=== PATIENT | female | born 1930 | race Caucasian/White ===

== ENCOUNTER 2016-08-06 06:54 | Emergency (ER) | payer MEDICARE, MEDICAID ==
[~2016-08-06] VITALS: Ht 167.6 cm; Wt 61.2 kg
[2016-08-06 07:05] VITALS: BP 155/74
[2016-08-06] MEDS ORDERED: OMEPRAZOLE40 M1 ORAL (07:27)
[2016-08-06] MEDS ORDERED: NAMENDA10 MG ORAL (07:27)
[2016-08-06] MEDS ORDERED: ASPIRIN81 MG ORAL (07:27)
[2016-08-06] MEDS ORDERED: IBUPROFEN600 MG ORAL (07:27)
[2016-08-06] MEDS ORDERED: ATENOLOL25 MG ORAL (07:27)
[2016-08-06] MEDS ORDERED: ATIVAN0.5 MG ORAL (07:27)
[2016-08-06] MEDS ORDERED: DONEPEZIL HCL5 M2 ORAL (07:27)
[2016-08-06 07:52] LABS: BASOPHILS % (AUTO) 0.4 % (0.0-2.0); EOSINOPHILS % (AUTO) 0.1 % (0.0-3.0); LYMPHOCYTES % (AUTO) 14.3 % (20.0-45.0); MEAN CORPUSCULAR HEMOGLOBIN 29.5 PG (27.0-31.0); MEAN CORPUSCULAR HGB CONC 33.1 G/DL (32.0-36.0); MEAN CORPUSCULAR VOLUME 89 FL (80-99); MEAN PLATELET VOLUME 6.7 FL (6.5-10.1); MONOCYTES % (AUTO) 5.8 % (1.0-10.0); NEUTROPHILS % (AUTO) 79.4 % (45.0-75.0); PLATELET COUNT 392 K/UL (150-450); RED BLOOD COUNT 4.45 M/UL (4.20-5.40); RED CELL DISTRIBUTION WIDTH 10.8 % (11.6-14.8)
[2016-08-06 08:04] LABS: PROTHROMBIN TIME 10.4 SEC (9.30-11.50); TROPONIN I < 0.30 ng/mL (<=0.30)
[2016-08-06 08:05] LABS: ALANINE AMINOTRANSFERASE 10 U/L (3-33); ALBUMIN/GLOBULIN RATIO 1.1 (1.0-2.7); ANION GAP 16 (5-15); ASPARTATE AMINO TRANSFERASE 16 U/L (5-40); CALCIUM 9.8 mg/dL (8.6-10.2); CARBON DIOXIDE 28 mEQ/L (20-30); CHLORIDE 94 mEQ/L (98-107); CREATININE 0.6 mg/dL (0.5-0.9); HEMOLYSIS 2; POTASSIUM 4.3 mEQ/L (3.4-4.9); SODIUM 138 mEQ/L (135-145); TOTAL PROTEIN 8.2 g/dL (6.6-8.7)
[2016-08-06 08:15] LABS: CKMB 2.6 ng/mL (< 3.8)
--- NOTE | 2016-08-06 08:43 | Diagnostic Imaging Report ---
Indication: Syncope Technique: Contiguous 5 mm thick transaxial imaging of the head obtained in a Siemens Sensation [address] scanner. Soft tissue and bone windows generated. Total Dose length Product (DLP): [address] Dose Index Volume (CTDIvol): 70.38 mGy Comparison: none Findings: There is moderate prominence of the ventricles, basal cisterns, and cerebral sulci consistent with atrophy. Mild, nonspecific, white matter hypoattenuation is noted throughout the brain consistent with chronic small vessel disease. There is no midline shift, edema, acute hemorrhage, mass effect, or abnormal extra-axial fluid collections. Bones and extra osseous soft tissues are unremarkable. There is mildly cold thickening within the sinus. Impression: No acute intracranial bleed, mass effect or edema. Moderate atrophy of the brain. Evidence of chronic small vessel disease involving white matter tracts. The CT scanner at [facility] is accredited by the [employer] and the scans are performed using protocols designed to limit radiation exposure to as low as reasonably achievable to attain images of sufficient resolution adequate for diagnostic evaluation.
--- NOTE | 2016-08-06 08:52 | Emergency Room Report ---
History of Present Illness General Chief Complaint: Multiple Trauma/Fall Source: Medical Record, EMS Present Illness HPI The patient was reported to be found down at the nursing facility Approximately 4:00 in the morning is when the incident that occurred Patient herself has severe dementia and is not able to speak with [place]ian translation Patient was found to have an abrasion over the nasal bridge and sent for further evaluation No reports of vomiting at the scene no reports of any focal weakness History of present illness is significantly limited given the patient's presentation Allergies: Coded Allergies: No Known Allergies (Unverified , 08/06/16) Patient History Limited by: medical condition Past Medical History: see triage record Pertinent Family History: none Reviewed Nursing Documentation: PMH: Agreed, PSxH: Agreed Nursing Documentation-PMH Hx Hypertension: Yes History Of Psychiatric Problem: Yes - Dementia Review of Systems All Other Systems: limited - Other than the ones mentioned in the history of present illness all others are reviewed however they do stay limited due to the patient's mental status Physical Exam Vital Signs Date Time Temp Pulse Resp B/P Pulse Ox O2 Delivery O2 Flow Rate FiO2 08/06/16 06:50 98.8 84 14 155/74 97 Room Air Sp02 EP Interpretation: reviewed, normal General Appearance: no apparent distress Head: normocephalic, atraumatic Eyes: bilateral eye EOMI, bilateral eye PERRL ENT: hearing grossly normal, normal pharynx, TMs + canals normal, uvula midline Neck: full range of motion, supple, no meningismus, no bony tend Respiratory: lungs clear, normal breath sounds, no rhonchi, no respiratory distress, no retraction, no accessory muscle use Cardiovascular #1: normal peripheral pulses, regular rate, rhythm, no edema, no gallop, no JVD, no murmur Gastrointestinal: normal bowel sounds, non tender, soft, no mass, no organomegaly, non-distended, no guarding, no hernia, no pulsatile mass, no rebound Genitourinary: no CVA tenderness Musculoskeletal: other - No obvious focal deficit however the patient does not follow commands makes exam somewhat difficult, Neurologic: responsive - To physical stimuli, sensory intact Psychiatric: mood/affect normal Skin: normal color, no rash, warm/dry, palpation normal Lymphatic: normal inspection, no adenopathy Medical Decision Making Diagnostic Impression: Primary Impression: Fall Additional Impression: Syncope ER Course The patient was found on the ground multiple differentials were considered Including but not limited to intracranial pathology, cardiac cardiopulmonary pathology Patient's EKG and blood work or at baseline levels Her white blood for count was minimally elevated however Imaging studies also at baseline levels CT head was also negative At this time given the extensive workup in the emergency room Patient is stable for initial conservative outpatient trial at the nursing facility CBC: White blood cell count 16,000 Chemistry normal UA negative Rhythm Strip Diag. Results EP Interpretation: yes Rate: 74 Rhythm: NSR, no PVC's, no ectopy Chest X-Ray Diagnostic Results EP Interpretation: Yes Findings: no consolidation, no effusion, no pneumothorax Number of Views: 1 Other X-Ray Diagnostic Results Other X-Ray Diagnostic Results : EP Interpretation: Yes Findings: no fractures, no dislocation, no soft tissue swelling Number of Views: 1 - pelvic CT/MRI/US Diagnostic Results CT/MRI/US Diagnostic Results : Impression CT head no acute disease Last Vital Signs Date Time Temp Pulse Resp B/P Pulse Ox O2 Delivery O2 Flow Rate FiO2 08/06/16 07:05 98.8 99 17 155/74 95 Room Air Status: improved Disposition: XFER SNF Condition: Stable Referrals: REYES ANGEL (PCP) Additional Instructions: Patient is provided with the discharge instructions notified to follow up with primary doctor in the next 2-3 days otherwise return to the er with any worsening symptoms. YAIMA WU D.O. Aug 06, 2016 08:52
[2016-08-06 08:53] LABS: APPEARANCE,URINE CLEAR; KETONES,URINE NEGATIVE (NEGATIVE); LEUKOCYTE ESTERASE ,URINE NEGATIVE (NEGATIVE); NITRITE,URINE NEGATIVE (NEGATIVE); PH,URINE 7 (4.5-8.0); PROTEIN,URINE NEGATIVE (NEGATIVE); UROBILINOGEN,URINE NORMAL MG/DL (0.0-1.0)
[2016-08-06] MEDS ORDERED: TRILEPTAL150 M3 PO (09:54)
--- NOTE | 2016-08-06 10:02 | Diagnostic Imaging Report ---
Indication: Chest Pain Comparison: None A single view chest radiograph was obtained. Findings: No definite infiltrate or pulmonary vascular congestion identified. The heart is enlarged. The aorta is mildly enlarged consistent with atherosclerotic vascular disease. The bones are osteopenic. Impression: No acute disease
[2016-08-06 11:00] VITALS: BP 124/60
[2016-08-06 11:30] VITALS: BP 124/60
--- NOTE | 2016-08-08 13:47 | Cardiology Report ---
APPROVED REPORT EKG Measurement Heart [id number] Normal sinus rhythm Nonspecific ST and T wave abnormality Abnormal ECG
--- NOTE | 2016-08-16 12:59 | Diagnostic Imaging Report ---
Indication: pain Findings: Single AP view of the pelvis was performed. Bones are osteopenic. There is no fracture seen. Vacuum phenomenon narrowing of L5-S1 disc demonstrated. The sacrum is obscured by bowel gas and stool. There is a calcification within the pelvis that is probably a uterine fibroid. Impression: No acute bony injury identified. L5-S1 degenerative disc disease Suspected calcified uterine fibroid
== END 2016-08-06 11:30 | disposition home or self-care (01) ==
LOC: EDBD 06:54 → EMR 07:46
DX: S00.33XA Contusion of nose, initial encounter (principal); S00.31XA Abrasion of nose, initial encounter; F03.90 Unspecified dementia, unspecified severity, without behavioral disturbance, psychotic disturbance, mood disturbance, and anxiety; I10 Essential (primary) hypertension; W19.XXXA Unspecified fall, initial encounter; Y92.129 Unspecified place in nursing home as the place of occurrence of the external cause
CPT/HCPCS: 36415; 70450; 71010; 72170; 80053; 81003; 82550; 82553; 84484; 85025; 85610; 85730; 93005; 99284